=== PATIENT | male | born 1950 | race Caucasian/White ===

== ENCOUNTER 2017-04-23 05:20 | Inpatient (IN) | payer OTHER ==
[~2017-04-23] VITALS: Ht 154.9 cm; Wt 80.0 kg
[~2017-04-23 05:20] MED LIST: ALTACE2.5 MG PO; BP MED PO; CIPRO500 MG PO; FLOMAX0.4 MG PO; LANTUS 10100 UNITS/ SC; LOVASTATIN20 MG PO; PERCOCET 5/31 TABLET PO; QUESTRAN PACKET4 GM PO; XARELTO15 MG PO; [UNRECOGNIZED DRUG - REMARK]
[2017-04-23 05:43] LABS: POINT-OF-CARE METER ID UU13113778
[2017-04-23 05:59] LABS: HEMATOCRIT 39.9 % (38.0-50.0); MCH 30.6 PG (29.0-34.0); MCHC 33.3 G/DL (30.0-36.0); MCV 91.7 FL (86-99); MEAN PLAT.VOLUME 8.6 uM^3 (9.0-12.4); PLATELET COUNT 181 K/uL (156-360); RBC DIS.WIDTH-CV 13.2 % (11.8-14.6); RBC DIS.WIDTH-SD 44.8 % (39-53); RED BLOOD COUNT 4.35 M/uL (4.00-5.50); WHITE BLOOD COUNT 6.1 K/uL (4.1-10.2)
[2017-04-23 06:00] LABS: ADD MIUA? YES; BILIRUBIN NEGATIVE; BLOOD NEGATIVE; COLOR AMBER ((YELLOW)); GLUCOSE (STRIP) >=500; KETONES 5; LEUKOCYTES NEGATIVE; NITRITE POSITIVE; PROTEIN (STRIP) 30; SPECIFIC GRAVITY 1.014 (1.000-1.030)
[2017-04-23 06:07] LABS: BACTERIA NONE SEEN /HPF; EPITHELIAL CELLS RARE /HPF; MUCUS TRACE /LPF; RED BLOOD CELLS 0-5 /HPF (0-5); UCUL ADDED? NO; WHITE BLOOD CELLS 0-5 /HPF (0-5)
[2017-04-23 06:15] LABS: CHLORIDE 103 mEq/L (99-109); POTASSIUM 4.2 mEq/L (3.7-5.4); SODIUM 136 mEq/L (136-147)
[2017-04-23 06:16] LABS: INTER. NORMALIZED RATIO 1.1; PROTHROMBIN TIME 11.7 (9.2-11.2); PTT 25.7 (25-32)
[2017-04-23 06:17] LABS: GLUCOSE 278 mg/dL (70-99)
[2017-04-23 06:18] LABS: ANION GAP 8 MEQ/L (2-14)
[2017-04-23 06:19] LABS: TOTAL BILIRUBIN 0.4 mg/dL (0.0-1.0)
[2017-04-23 06:21] LABS: ALKALINE PHOSPHATASE 92 IU/L (3-129); GFR ESTIMATE (CALCULATED) 54 mL/min/
[2017-04-23 06:22] LABS: UREA NITROGEN (BUN) 18 mg/dL (9-23)
[2017-04-23 06:24] LABS: LIPASE 526 U/L (1.0-51.0)
[2017-04-23 08:41] LABS: POINT-OF-CARE METER ID UU13113702
[2017-04-23] MEDS ORDERED: LANTUS 10100 UNITS/ SC (08:48)
[2017-04-23 09:17] LABS: HDL CHOLESTEROL 43 MG/DL (Desirable>=40); LDL CHOLESTEROL 116 mg/dL (Desirable<100); NON-HDL CHOLESTEROL 147 mg/dL (Desirable<160); TOTAL CHOLESTEROL 190 mg/dL (Desirable<200); TRIGLYCERIDES 156 MG/DL (Normal: <150)
[2017-04-23 11:22] LABS: POINT-OF-CARE METER ID UU13113702
[2017-04-23 14:27] VITALS: BP 142/67
[2017-04-23 18:29] LABS: POINT-OF-CARE METER ID UU14174225
[2017-04-23 20:08] VITALS: BP 145/83
[2017-04-23 22:37] LABS: POINT-OF-CARE METER ID UU14174225
[2017-04-24 00:21] VITALS: BP 119/74
[2017-04-24 04:40] VITALS: BP 104/66
[2017-04-24 06:42] LABS: ANION GAP 8 MEQ/L (2-14); CHLORIDE 111 MEQ/L (99-109); SAMPLE HEMOLYSIS CHECK 2; SAMPLE ICTERIC CHECK 0; SAMPLE LIPEMIA CHECK 0; SODIUM 138 MEQ/L (136-147)
[2017-04-24 06:47] LABS: POTASSIUM 5.2 MEQ/L (3.7-5.4)
[2017-04-24 06:50] LABS: GFR ESTIMATE (CALCULATED) > 59 mL/min/; GLUCOSE 94 mg/dL (70-99); UREA NITROGEN (BUN) 10 mg/dL (9-23)
[2017-04-24 07:58] VITALS: BP 142/67
[2017-04-24 08:15] LABS: POINT-OF-CARE METER ID UU14174225
[2017-04-24 08:39] LABS: HEMATOCRIT 36.3 % (38.0-50.0); MCH 31.6 PG (29.0-34.0); MCHC 33.9 G/DL (30.0-36.0); MCV 93.3 FL (86-99); MEAN PLAT.VOLUME 8.8 uM^3 (9.0-12.4); PLATELET COUNT 164 K/uL (156-360); RBC DIS.WIDTH-CV 13.8 % (11.8-14.6); RBC DIS.WIDTH-SD 46.8 % (39-53); RED BLOOD COUNT 3.89 M/uL (4.00-5.50); WHITE BLOOD COUNT 4.3 K/uL (4.1-10.2)
[2017-04-24 12:28] VITALS: BP 140/81
[2017-04-24 16:17] VITALS: BP 138/80
[2017-04-24 20:00] VITALS: BP 137/65
[2017-04-25] VITALS: BP 133/70
[2017-04-25 04:00] VITALS: BP 117/66
[2017-04-25 06:06] LABS: HEMATOCRIT 38.1 % (38.0-50.0); MCH 31.3 PG (29.0-34.0); MCHC 33.6 G/DL (30.0-36.0); MCV 93.2 FL (86-99); PLATELET COUNT 168 K/uL (156-360); RBC DIS.WIDTH-CV 13.3 % (11.8-14.6); RBC DIS.WIDTH-SD 45.6 % (39-53); RED BLOOD COUNT 4.09 M/uL (4.00-5.50); WHITE BLOOD COUNT 3.9 K/uL (4.1-10.2)
[2017-04-25 06:41] LABS: ANION GAP 6 MEQ/L (2-14); CHLORIDE 109 MEQ/L (99-109); GFR ESTIMATE (CALCULATED) > 59 mL/min/; SAMPLE HEMOLYSIS CHECK 0; SAMPLE ICTERIC CHECK 0; SAMPLE LIPEMIA CHECK 0; SODIUM 140 MEQ/L (136-147); UREA NITROGEN (BUN) 9 mg/dL (9-23)
[2017-04-25 06:51] LABS: GLUCOSE 164 mg/dL (70-99); POTASSIUM 3.9 MEQ/L (3.7-5.4)
[2017-04-25 08:06] VITALS: BP 146/83
[2017-04-25 11:53] LABS: C DIFF TOXIN NEGATIVE (NEGATIVE); PROBE CHECK PASS; SPECIMEN PROCESSING CONTROL PASS
[2017-04-25 11:56] VITALS: BP 142/85
[2017-04-25 13:26] LABS: INTERNAL CONTROL VALID? YES
[2017-04-25 15:24] LABS: POINT-OF-CARE METER ID UU13113717
== END 2017-04-25 15:28 | disposition home or self-care (01) | DRG 439 ==
LOC: EME 05:20 → EDOF 08:05 → 5SOUTH 08:05
PROVIDERS: Emergency Medicine; Internal Medicine; Physician Assistant Medical
DX: K85.20 Alcohol induced acute pancreatitis without necrosis or infection (principal); E87.2 Acidosis; E11.22 Type 2 diabetes mellitus with diabetic chronic kidney disease; K76.0 Fatty (change of) liver, not elsewhere classified; I12.9 Hypertensive chronic kidney disease with stage 1 through stage 4 chronic kidney disease, or unspecified chronic kidney disease; K40.90 Unilateral inguinal hernia, without obstruction or gangrene, not specified as recurrent; N28.1 Cyst of kidney, acquired; N18.3 Chronic kidney disease, stage 3 (moderate); Z87.440 Personal history of urinary (tract) infections; Z79.4 Long term (current) use of insulin; Z85.46 Personal history of malignant neoplasm of prostate; Z86.73 Personal history of transient ischemic attack (TIA), and cerebral infarction without residual deficits; Z92.3 Personal history of irradiation; M25.512 Pain in left shoulder; M25.511 Pain in right shoulder; R19.7 Diarrhea, unspecified; R74.8 Abnormal levels of other serum enzymes
CPT/HCPCS: 74177; 76705; 80048; 80053; 80061; 81003; 82272; 82948; 83605; 83690; 85027; 85610; 85730; 87086; 87493; 99281; 99285; J0696; J1644; J1815; J1885; J2405; J7030; J7042; J7050; S0028

== ENCOUNTER 2017-09-24 01:29 | Inpatient (IN) | payer OTHER ==
[~2017-09-24] VITALS: Ht 152.4 cm; Wt 77.7 kg
[2017-09-24 01:51] LABS: POINT-OF-CARE METER ID UU13113778
[2017-09-24 01:55] LABS: ADD MIUA? YES; BILIRUBIN NEGATIVE; BLOOD SMALL; COLOR YELLOW ((YELLOW)); GLUCOSE (STRIP) 150; KETONES NEGATIVE; LEUKOCYTES NEGATIVE; NITRITE NEGATIVE; PROTEIN (STRIP) 30; SPECIFIC GRAVITY 1.019 (1.000-1.030); UROBILINOGEN 0.2 MG/DL (0.2-1.0)
[2017-09-24 01:58] LABS: BACTERIA NONE SEEN /HPF; EPITHELIAL CELLS RARE /HPF; MUCUS TRACE /LPF; RED BLOOD CELLS 0-5 /HPF (0-5); UCUL ADDED? NO; WHITE BLOOD CELLS 0-5 /HPF (0-5)
[2017-09-24 02:00] LABS: MCH 28.8 PG (29.0-34.0); MCHC 32.6 G/DL (30.0-36.0); MCV 88.2 FL (86-99); MEAN PLAT.VOLUME 8.7 uM^3 (9.0-12.4); PLATELET COUNT 206 K/uL (156-360); RBC DIS.WIDTH-SD 45.3 % (39-53); RED BLOOD COUNT 4.31 M/uL (4.00-5.50); WHITE BLOOD COUNT 8.9 K/uL (4.1-10.2)
[2017-09-24 02:08] LABS: CHLORIDE 105 mEq/L (99-109); SODIUM 134 mEq/L (136-147)
[2017-09-24 02:11] LABS: GLUCOSE 186 mg/dL (70-99)
[2017-09-24 02:12] LABS: ANION GAP 7 MEQ/L (2-14)
[2017-09-24 02:13] LABS: TOTAL BILIRUBIN 0.4 mg/dL (0.0-1.0)
[2017-09-24 02:14] LABS: ALKALINE PHOSPHATASE 101 IU/L (3-129); GFR ESTIMATE (CALCULATED) > 59 mL/min/
[2017-09-24 02:15] LABS: UREA NITROGEN (BUN) 21 mg/dL (9-23)
[2017-09-24 02:18] LABS: LIPASE 868 U/L (1.0-51.0)
[2017-09-24 03:10] LABS: TROP-I INTERPRETATION NEGATIVE; TROPONIN-I < 0.01 ng/mL (0.0-0.30)
[2017-09-24 06:56] LABS: POINT-OF-CARE METER ID UU13113747
[2017-09-24 07:37] VITALS: BP 124/65
[2017-09-24 10:14] LABS: POINT-OF-CARE METER ID UU14174225
[2017-09-24 10:37] LABS: C DIFF TOXIN NEGATIVE (NEGATIVE)
[2017-09-24] MEDS ORDERED: LANTUS 10100 UNITS/ SC ×2 (11:09)
[2017-09-24 11:10] LABS: PROBE CHECK PASS; SPECIMEN PROCESSING CONTROL PASS
[2017-09-24] MEDS ORDERED: ALEVE220 M2 PO (11:10)
[2017-09-24] MEDS ORDERED: AZO CRANBERRY1 EAC1 PO (11:10)
[2017-09-24 11:29] VITALS: BP 127/72
[2017-09-24 14:20] LABS: POINT-OF-CARE METER ID UU13113717
[2017-09-24 15:58] VITALS: BP 115/69
[2017-09-24 18:06] LABS: POINT-OF-CARE METER ID UU14188625
[2017-09-24 19:15] VITALS: BP 109/67
[2017-09-24 20:06] LABS: POINT-OF-CARE METER ID UU14174225
[2017-09-24 21:47] LABS: POINT-OF-CARE METER ID UU14174225
[2017-09-24 23:37] VITALS: BP 1117/71; BP 117/71
[2017-09-25 03:19] LABS: POINT-OF-CARE METER ID UU13113717
[2017-09-25 03:49] VITALS: BP 108/62
[2017-09-25 06:14] LABS: EOSINOPHIL (%) 3.8 % (0-5); EOSINOPHIL COUNT 0.1 K/uL (0-0.3); HEMATOCRIT 34.6 % (38.0-50.0); IMMATURE GRANULOCYTE (%) 0.3 % (0.0-0.7); INSTRUMENT ABS NEUTROPHIL CT 1.6 K/uL; LYMPHOCYTE COUNT 1.3 K/uL (1.0-2.8); MCHC 31.8 G/DL (30.0-36.0); MCV 91.3 FL (86-99); MEAN PLAT.VOLUME 8.8 uM^3 (9.0-12.4); MONOCYTE (%) 10.9 % (3-12); MONOCYTE COUNT 0.4 K/uL (0-0.8); NEUTROPHIL (%) 45.9 % (45-76); NEUTROPHIL COUNT 1.6 K/uL (1.8-6.4); PLATELET COUNT 146 K/uL (156-360); RBC DIS.WIDTH-CV 14.4 % (11.8-14.6); RBC DIS.WIDTH-SD 48.2 % (39-53); RED BLOOD COUNT 3.79 M/uL (4.00-5.50); WHITE BLOOD COUNT 3.4 K/uL (4.1-10.2)
[2017-09-25 06:39] LABS: ANION GAP 4 MEQ/L (2-14); CHLORIDE 109 MEQ/L (99-109); GFR ESTIMATE (CALCULATED) > 59 mL/min/; POTASSIUM 3.9 MEQ/L (3.7-5.4); SAMPLE HEMOLYSIS CHECK 0; SAMPLE ICTERIC CHECK 0; SAMPLE LIPEMIA CHECK 0; UREA NITROGEN (BUN) 12 mg/dL (9-23)
[2017-09-25 06:40] LABS: ALKALINE PHOSPHATASE 69 IU/L (3-129); ANION GAP 5 MEQ/L (2-14); CHLORIDE 109 MEQ/L (99-109); GFR ESTIMATE (CALCULATED) > 59 mL/min/; LIPASE 292 U/L (1.0-51.0); POTASSIUM 3.8 MEQ/L (3.7-5.4); SAMPLE HEMOLYSIS CHECK 0; SAMPLE ICTERIC CHECK 0; SAMPLE LIPEMIA CHECK 0; SODIUM 140 MEQ/L (136-147); TOTAL BILIRUBIN 0.5 MG/DL (0.0-1.0); UREA NITROGEN (BUN) 11 mg/dL (9-23)
[2017-09-25 06:43] LABS: GLUCOSE 109 mg/dL (70-99); GLUCOSE 113 mg/dL (70-99); SODIUM 141 MEQ/L (136-147)
[2017-09-25 06:58] VITALS: BP 135/69
[2017-09-25 07:17] LABS: POINT-OF-CARE METER ID UU14174225
[2017-09-25 07:55] LABS: INTERNAL CONTROL VALID? YES
[2017-09-25 11:10] LABS: POINT-OF-CARE METER ID UU14174225
[2017-09-25 11:16] VITALS: BP 141/73
[2017-09-25 15:12] VITALS: BP 108/62
[2017-09-25 16:10] LABS: POINT-OF-CARE METER ID UU14188625
[2017-09-25 19:26] VITALS: BP 119/62
[2017-09-25 21:24] LABS: POINT-OF-CARE METER ID UU14188625
[2017-09-25 23:39] VITALS: BP 116/55
[2017-09-26 03:43] VITALS: BP 118/65
[2017-09-26 03:51] LABS: POINT-OF-CARE METER ID UU14188625
[2017-09-26 06:18] LABS: EOSINOPHIL (%) 3.4 % (0-5); EOSINOPHIL COUNT 0.1 K/uL (0-0.3); HEMATOCRIT 34.9 % (38.0-50.0); IMMATURE GRANULOCYTE (%) 0.3 % (0.0-0.7); INSTRUMENT ABS NEUTROPHIL CT 1.7 K/uL; LYMPHOCYTE COUNT 1.1 K/uL (1.0-2.8); MCH 29.5 PG (29.0-34.0); MCHC 32.4 G/DL (30.0-36.0); MCV 91.1 FL (86-99); MEAN PLAT.VOLUME 8.6 uM^3 (9.0-12.4); MONOCYTE (%) 9.5 % (3-12); MONOCYTE COUNT 0.3 K/uL (0-0.8); NEUTROPHIL (%) 52.1 % (45-76); NEUTROPHIL COUNT 1.7 K/uL (1.8-6.4); PLATELET COUNT 135 K/uL (156-360); RBC DIS.WIDTH-CV 13.9 % (11.8-14.6); RBC DIS.WIDTH-SD 46.5 % (39-53); RED BLOOD COUNT 3.83 M/uL (4.00-5.50); WHITE BLOOD COUNT 3.3 K/uL (4.1-10.2)
[2017-09-26 06:47] LABS: ANION GAP 4 MEQ/L (2-14); CHLORIDE 107 MEQ/L (99-109); GFR ESTIMATE (CALCULATED) > 59 mL/min/; LIPASE 544 U/L (1.0-51.0); SAMPLE HEMOLYSIS CHECK 0; SAMPLE ICTERIC CHECK 0; SAMPLE LIPEMIA CHECK 0; SODIUM 135 MEQ/L (136-147); UREA NITROGEN (BUN) 14 mg/dL (9-23)
[2017-09-26 06:49] LABS: GLUCOSE 217 mg/dL (70-99)
[2017-09-26 07:35] LABS: POINT-OF-CARE METER ID UU14188625
[2017-09-26 07:51] VITALS: BP 132/73
[2017-09-26 12:26] LABS: POINT-OF-CARE METER ID UU14174225
[2017-09-26 16:00] VITALS: BP 132/969
[2017-09-26 17:33] LABS: POINT-OF-CARE METER ID UU14188625
[2017-09-26 21:03] LABS: POINT-OF-CARE METER ID UU14188625
[2017-09-26 23:34] VITALS: BP 118/69
[2017-09-27 03:29] LABS: POINT-OF-CARE METER ID UU14174225
[2017-09-27 07:02] LABS: EOSINOPHIL (%) 2.8 % (0-5); EOSINOPHIL COUNT 0.1 K/uL (0-0.3); HEMATOCRIT 35.7 % (38.0-50.0); IMMATURE GRANULOCYTE (%) 0.5 % (0.0-0.7); INSTRUMENT ABS NEUTROPHIL CT 2.1 K/uL; LYMPHOCYTE COUNT 1.3 K/uL (1.0-2.8); MCH 28.4 PG (29.0-34.0); MCHC 31.9 G/DL (30.0-36.0); MCV 88.8 FL (86-99); MEAN PLAT.VOLUME 9.2 uM^3 (9.0-12.4); MONOCYTE (%) 10.3 % (3-12); MONOCYTE COUNT 0.4 K/uL (0-0.8); NEUTROPHIL (%) 53.5 % (45-76); NEUTROPHIL COUNT 2.1 K/uL (1.8-6.4); PLATELET COUNT 150 K/uL (156-360); RBC DIS.WIDTH-CV 13.7 % (11.8-14.6); RBC DIS.WIDTH-SD 45.2 % (39-53); RED BLOOD COUNT 4.02 M/uL (4.00-5.50); WHITE BLOOD COUNT 3.9 K/uL (4.1-10.2)
[2017-09-27 07:14] LABS: POINT-OF-CARE METER ID UU14188625
[2017-09-27 07:15] LABS: ANION GAP 9 MEQ/L (2-14); CHLORIDE 106 MEQ/L (99-109); GFR ESTIMATE (CALCULATED) > 59 mL/min/; GLUCOSE 249 mg/dL (70-99); POTASSIUM 4.3 MEQ/L (3.7-5.4); SAMPLE HEMOLYSIS CHECK 0; SAMPLE ICTERIC CHECK 0; SAMPLE LIPEMIA CHECK 0; SODIUM 138 MEQ/L (136-147); UREA NITROGEN (BUN) 16 mg/dL (9-23)
[2017-09-27 08:29] VITALS: BP 123/65
[2017-09-27] MEDS ORDERED: PANTOPRAZOLE SO40 MG PO (09:03)
[2017-09-27] MEDS ORDERED: FOLIC ACID1 MG PO (09:03)
[2017-09-27] MEDS ORDERED: BIAXIN500 MG PO (09:03)
[2017-09-27] MEDS ORDERED: Thiamine,Vitamin B1 PO (09:03)
[2017-09-27] MEDS ORDERED: AMOXICILLIN500 MG PO (09:03)
== END 2017-09-27 10:52 | disposition home or self-care (01) | DRG 383 ==
LOC: EME 01:29 → 5SOUTH 05:57 → EDOF 05:57 → ENRESERV 05:59 → EDOF 07:20 → 5SOUTH 07:21
PROVIDERS: Hospitalist; Physician Assistant
DX: K26.9 Duodenal ulcer, unspecified as acute or chronic, without hemorrhage or perforation (principal); K85.90 Acute pancreatitis without necrosis or infection, unspecified; B96.81 Helicobacter pylori [H. pylori] as the cause of diseases classified elsewhere; T39.395A Adverse effect of other nonsteroidal anti-inflammatory drugs [NSAID], initial encounter; D72.819 Decreased white blood cell count, unspecified; I12.9 Hypertensive chronic kidney disease with stage 1 through stage 4 chronic kidney disease, or unspecified chronic kidney disease; N18.3 Chronic kidney disease, stage 3 (moderate); E11.22 Type 2 diabetes mellitus with diabetic chronic kidney disease; N28.1 Cyst of kidney, acquired; K29.70 Gastritis, unspecified, without bleeding; F10.10 Alcohol abuse, uncomplicated; M19.90 Unspecified osteoarthritis, unspecified site; Z79.4 Long term (current) use of insulin; Z85.46 Personal history of malignant neoplasm of prostate; Z92.3 Personal history of irradiation; Z86.73 Personal history of transient ischemic attack (TIA), and cerebral infarction without residual deficits; Z87.442 Personal history of urinary calculi
CPT/HCPCS: 74177; 74183; 80048; 80053; 81003; 82948; 83690; 83735; 84484; 85025; 85027; 87338; 87493; 93005; 99281; 99285; C9113; J1644; J1815; J3010; J7030; J7042

== ENCOUNTER 2017-12-01 17:28 | Emergency (ER) | payer OTHER ==
[~2017-12-01] VITALS: Ht 152.4 cm; Wt 66.3 kg
[~2017-12-01 17:28] MED LIST changes: +ALEVE220 M2 PO; +AMOXICILLIN500 MG PO; +AZO CRANBERRY1 EAC1 PO; +BIAXIN500 MG PO; +FOLIC ACID1 MG PO; +PANTOPRAZOLE SO40 MG PO; +Thiamine,Vitamin B1 PO
[2017-12-01 18:06] LABS: HEMATOCRIT 38.5 % (38.0-50.0); HEMOGLOBIN 12.7 G/DL (12.5-16.6); MCH 29.2 PG (29.0-34.0); MCV 88.5 FL (86-99); PLATELET COUNT 179 K/uL (156-360); RBC DIS.WIDTH-CV 13.8 % (11.8-14.6); RBC DIS.WIDTH-SD 45.1 % (39-53); RED BLOOD COUNT 4.35 M/uL (4.00-5.50); WHITE BLOOD COUNT 4.4 K/uL (4.1-10.2)
[2017-12-01 18:15] LABS: ALBUMIN 3.5 g/dL (3.2-4.8); CHLORIDE 103 mEq/L (99-109); POTASSIUM 4.5 mEq/L (3.7-5.4); SODIUM 136 mEq/L (136-147)
[2017-12-01 18:19] LABS: TOTAL BILIRUBIN 0.6 mg/dL (0.0-1.0)
[2017-12-01 18:21] LABS: ALKALINE PHOSPHATASE 104 IU/L (3-129); CREATININE 1.6 mg/dL (0.6-1.3); GFR ESTIMATE (CALCULATED) 46 mL/min/ (58.99-99999)
[2017-12-01 18:22] LABS: UREA NITROGEN (BUN) 27 mg/dL (9-23)
[2017-12-01 18:23] LABS: AST (GOT) 62 IU/L (2-34)
[2017-12-01 18:24] LABS: ALT (GPT) 52 IU/L (3-49)
[2017-12-01 18:27] LABS: GLUCOSE 492 mg/dL (70-99)
[2017-12-01 18:47] LABS: APPEARANCE CLEAR ((CLEAR)); BILIRUBIN NEGATIVE; BLOOD MODERATE; COLOR YELLOW ((YELLOW)); GLUCOSE (STRIP) >=500; KETONES NEGATIVE; LEUKOCYTES NEGATIVE; NITRITE NEGATIVE; PROTEIN (STRIP) 30; SPECIFIC GRAVITY 1.028 (1.000-1.030); UROBILINOGEN 0.2 MG/DL (0.2-1.0)
[2017-12-01 18:50] LABS: BACTERIA RARE /HPF; EPITHELIAL CELLS RARE /HPF; MUCUS NONE SEEN /LPF; RED BLOOD CELLS 0-5 /HPF (0-5); UCUL ADDED? NO; WHITE BLOOD CELLS 0-5 /HPF (0-5)
[2017-12-01] MEDS ORDERED: CHERATUSSIN AC473 ML PO (19:57)
[2017-12-01] MEDS ORDERED: TESSALON PERLE100 MG PO (19:57)
[2017-12-01 20:07] VITALS: BP 131/77
== END 2017-12-01 20:09 | disposition home or self-care (01) ==
LOC: EME 17:28
PROVIDERS: Physician Assistant
DX: J06.9 Acute upper respiratory infection, unspecified (principal); E11.65 Type 2 diabetes mellitus with hyperglycemia; Z79.4 Long term (current) use of insulin; N28.9 Disorder of kidney and ureter, unspecified; T50.996A Underdosing of other drugs, medicaments and biological substances, initial encounter; Z91.120 Patient's intentional underdosing of medication regimen due to financial hardship; I10 Essential (primary) hypertension; Z86.718 Personal history of other venous thrombosis and embolism; J45.909 Unspecified asthma, uncomplicated; Z86.73 Personal history of transient ischemic attack (TIA), and cerebral infarction without residual deficits; Z85.46 Personal history of malignant neoplasm of prostate; Z87.442 Personal history of urinary calculi
CPT/HCPCS: 71046; 80053; 81003; 82010; 82948; 85027; 87502; 99281; 99284; J7030